=== PATIENT | female | born 1975 | race African-American/Black ===

== ENCOUNTER → 2019-01-27 | Outpatient (CLI) | payer OTHER ==
[~2019-01-27] MED LIST: AMLO10TA8 PO; ATOR10TA60 PO; CIPR500T PO; IOHEXOL 240 MG/ML 50ML VIAL. PO ONE; IOHEXOL 300 MG/ML 100ML VIAL. IV ONE; IOHEXOL 300 MG/ML 100ML VIAL. PO ONE; LISI-130 PO; METR-34 PO; MIRA50TA PO; TRIA1CAP3 PO
--- NOTE | 2019-01-27 11:34 | RAD ---
s EXAM: CT Abdomen and Pelvis with IV contrast CLINICAL HISTORY: COLOVESICAL FISTULA COMPARISON: none TECHNIQUE: Helical CT of the abdomen and pelvis was performed following the administration of intravenous contrast. Oral and rectal contrast was administered. Axial, coronal and sagittal reformatted images were generated. PQRS compliance statement - One or more of the following individualized dose reduction techniques were utilized for this study: 1. Automated exposure control 2. Adjustment of the mA and/or kV according to patient size 3. Use of iterative reconstruction technique FINDINGS: Lower chest: Aortic root calcifications are seen. Abdomen and Pelvis: A 7 mm hypodense right hepatic lobe lesion is seen. Focal low-attenuation along the falciform ligament likely focal fatty infiltration. Gallstones are seen within the gallbladder. Mild high density material layering dependently within the gallbladder likely sludge. No biliary ductal dilatation. Spleen is unremarkable. Adrenal glands are normal. Pancreas is unremarkable. Symmetric nephrograms. No focal renal lesion. No hydronephrosis. No hydroureter. The bladder is diffusely opacified with contrast. Within the sigmoid colon there is mild wall thickening with contrast partially extending into a collection between the uterus and bladder seen best on sagittal series 5, image 40, coronal series 4 image 32. The focus of direct extension into the bladder is not delineated but suspected given the bladder wall thickening, bladder contrast and gas within the bladder. No abdominal or pelvic lymphadenopathy. No abdominal or pelvic ascites. Bones: Osseous structures are grossly unremarkable. IMPRESSION: 1. There is a colovesicular fistula with contrast extending into an extraluminal collection between the sigmoid colon and bladder with subsequent contrast extension into the bladder. 2. Cholelithiasis and gallbladder sludge. Electronically signed by: Stanislaw Saunders MD (01/27/2019 11:31 AM) [facility]
== END | disposition home or self-care (01) ==
LOC: CT 07:59
PROVIDERS: ATTEND Surgery
DX: K63.2 Fistula of intestine (principal); K80.20 Calculus of gallbladder without cholecystitis without obstruction
CPT/HCPCS: 74177; Q9966; Q9967

== ENCOUNTER → 2019-01-29 | Outpatient (CLI) | payer OTHER ==
[~2019-01-29] MED LIST changes: -IOHEXOL 240 MG/ML 50ML VIAL. PO ONE; -IOHEXOL 300 MG/ML 100ML VIAL. IV ONE; -IOHEXOL 300 MG/ML 100ML VIAL. PO ONE
[2019-01-29 11:22] LABS: BASO # 0.1 x10^3/uL (0.0-0.2); BASO % 1 % (0-3); EOS # 0.3 x10^3/uL (0.0-0.7); EOS % 4 % (0-3); HEMATOCRIT 39.9 % (36.0-47.0); HEMOGLOBIN 12.5 g/dL (12.0-15.5); LYMPH # 2.3 x10^3/uL (1.0-4.8); LYMPH % 27 % (24-48); MEAN CORPUSCULAR HEMOGLOBIN 26 pg (25-35); MEAN CORPUSCULAR HGB CONC 31 g/dL (31-37); MEAN CORPUSCULAR VOLUME 82 fL (79-100); MONO # 0.8 x10^3/uL (0.0-1.1); MONO % 10 % (0-9); NEUT # 4.9 x10^3/uL (1.8-7.7); NEUT % 58 % (31-73); PLATELET COUNT 317 x10^3/uL (140-400); RED BLOOD COUNT 4.87 x10^6/uL (3.50-5.40); RED CELL DISTRIBUTION WIDTH 17.2 % (11.5-14.5); WHITE BLOOD COUNT 8.5 x10^3/uL (4.0-11.0)
[2019-01-29 11:41] LABS: ALBUMIN 3.3 g/dL (3.4-5.0); CALCIUM 9.1 mg/dL (8.5-10.1); CREATININE 1.2 mg/dL (0.6-1.0); GFR 58.8; POTASSIUM 4.2 mmol/L (3.5-5.1)
--- NOTE | 2019-01-29 11:55 | NUR ---
Lab results from 01/29/[address] Bangura's office
== END | disposition home or self-care (01) ==
LOC: SURGPAT 10:08
PROVIDERS: ATTEND Surgery
DX: Z01.818 Encounter for other preprocedural examination (principal); N32.1 Vesicointestinal fistula
CPT/HCPCS: 36415; 80048; 82040; 85025

== ENCOUNTER 2019-02-05 09:07 | Inpatient (IN) | payer OTHER ==
[~2019-02-05] VITALS: Ht 152.4 cm; Wt 113.2 kg
[2019-02-05] VITALS (8 sets, daily range): BP systolic 129–143; BP diastolic 64–78
[~2019-02-05 09:07] MED LIST changes: +IOHEXOL 300 MG/ML 50 ML VIAL. ONE; +IV RINGERS,LACTATED 1000ML 1,000 ML IV SCH; +LIDOCAINE 1% PF 2 ML VIAL. ID PRN; +LIDOCAINE 2% JELLY 6ML IN APPLICATOR. ONE; +ONDANSETRON PF 4 MG/2 ML VIAL. IV PRN; +PROCHLORPERAZINE 10 MG/2 ML VIAL. IV PRN; +fentaNYL PF VIAL 100 MCG/2 ML VIAL IV PRN
[2019-02-05] MEDS ORDERED: LIDOCAINE 2% PF 5 ML VIAL. ONE (09:14)
[2019-02-05] MEDS ORDERED: ROCURONIUM 100 MG/10 ML VIAL. ONE (09:14)
[2019-02-05] MEDS ORDERED: SUCCINYLCHOLINE 200 MG/10 ML VIAL. ONE (09:14)
[2019-02-05] MEDS ORDERED: PROPOFOL 20 ML IV ONE (09:14)
[2019-02-05] MEDS ORDERED: fentaNYL PF VIAL 100 MCG/2 ML VIAL ONE ×2 (09:15→11:55)
[2019-02-05] MEDS ORDERED: DESFLURANE 61 TO 120 MINUTES IH ONE (10:59)
[2019-02-05] MEDS ORDERED: DEXAMETHASONE SOD PHOS 20 MG/5 ML VIAL. ONE (10:59)
[2019-02-05] MEDS ORDERED: ONDANSETRON PF 4 MG/2 ML VIAL. ONE (11:43)
[2019-02-05] MEDS ORDERED: PHENYLEPHRINE in 0.9% NACL PF 1 MG/10 ML SYRINGE. IV ONE (12:06)
[2019-02-05] MEDS ORDERED: ROCURONIUM 50 MG/5 ML VIAL. ONE (13:29)
[2019-02-05] MEDS ORDERED: NEOSTIGMINE METHYLSULFATE 5 MG/5 ML SYRINGE. ONE (13:35)
[2019-02-05] MEDS ORDERED: GLYCOPYRROLATE 1 MG/5 ML VIAL. ONE (13:36)
[2019-02-05] MEDS ORDERED: DESFLURANE > 120 MINUTES IH ONE (13:56)
[2019-02-05] MEDS: IV NORMAL SALINE 1000ML BAG 1,000 ML IV SCH (14:22)
[2019-02-05] MEDS ORDERED: NALOXONE 0.4 MG/ML VIAL. IV PRN (14:30)
[2019-02-05] MEDS ORDERED: 0.9 % SODIUM CHLORIDE 10 ML DISP.SYRIN. IV PRN (14:30)
[2019-02-05] MEDS ORDERED: ONDANSETRON PF 4 MG/2 ML VIAL. IV PRN (14:30)
[2019-02-05] MEDS: MORPHINE SULFATE 2 MG/ML VIAL. IV PRN ×2 (14:35→14:45)
[2019-02-05] MEDS: fentaNYL PF VIAL 100 MCG/2 ML VIAL IV PRN ×4 (14:35→15:06)
[2019-02-05] MEDS: HYDROmorphone 2 MG/ML VIAL IV PRN ×2 (14:55→15:07)
--- NOTE | 2019-02-05 14:55 | PDOC ---
BRIEF OPERATIVE NOTE Date: Feb 05, 2019 Pre-Op Diagnosis colovesical fistula Post-Op Diagnosis same Procedure Performed rigid proctocopy sigmoid resection with primary anastomosis Surgeon Willem Bioinformatics Research Technician Marguerite JAVED Anesthesia Type: General Blood Loss 100cc IV Fluid 1500cc Urine Output 100cc Specimens Obtained sigmoid colon Findings colovesical fistula, normal sigmoid proximal and distal to the process Complications none Operative Note Wk # [id number] GENE OSCAR MD Feb 05, 2019 14:55
[2019-02-05] MEDS: TRIAMTERENE/HCTZ 37.5/25MG TABLET. PO SCH (15:00)
[2019-02-05] MEDS: amLODIPine BESYLATE 10 MG TABLET PO SCH (15:10)
[2019-02-05] MEDS ORDERED: FLU VAX QS 2019-20 (36MOS+)/PF 0.5 ML SYRINGE. VAX IM ONE (15:45)
[2019-02-05] MEDS: HYDROmorphone 12mg/30ml PCA 30 ML IV PRN (16:15)
--- NOTE | 2019-02-05 16:46 | RAD ---
Examination: KUB History: Postop KUB. Sigmoid resection. Comparison/Correlation: 01/27/2019 CT abdomen and pelvis with contrast Findings: Frontal view of the abdomen was obtained in the operating room. Right-sided pelvic drain terminating overlying the left lower iliac fossa regions present. Left-sided drain terminating overlying the left L5 transverse process noted. Bowel gas pattern is unremarkable. No suspicious retained foreign bodies delineated. Impression: No obstruction. Electronically signed by: Bob Morrow MD (02/05/2019 4:44 PM) [facility]
[2019-02-05] MEDS: POTASSIUM CL 20MEQ-0.45% NACL 1,000 ML IV SCH (18:54)
--- NOTE | 2019-02-05 19:34 | OP ---
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 PROCEDURE: 1. Rigid proctoscopy. 2. Sigmoid resection with primary anastomosis. SURGEON: Earnest Oscar MD REAL ESTATE PROCESSOR: TEGAN Vaughan ANESTHESIA: General endotracheal. ESTIMATED BLOOD LOSS: 100 mL. INTRAVENOUS FLUIDS: 1500 mL. URINE OUTPUT: 100 mL. INDICATIONS FOR PROCEDURE: The patient is a 44-year-old with abdominal pain, who was investigated by her urologist and found to have a colovesical fistula. She was treated with antibiotic therapy as an outpatient, right now for resection. OPERATIVE FINDINGS: The sigmoid colon had an area of induration and dense adherence to the dome of the bladder consistent with a fistula. The colon above and below the process was unremarkable. Left ovary was surgically absent, uterus and right ovary were intact with cystic change in the right ovary. Small bowel was run without abnormality. DESCRIPTION OF PROCEDURE: The patient brought to the operating suite, given a general endotracheal anesthetic, placed in lithotomy and underwent cystoscopy with ureteral stent placement by Dr. Alvarado who will dictate. Digital rectal exam was carried out and the rigid scope placed in anal canal and under direct vision, advanced to approximately 20 cm from the anal verge. No abnormalities seen at that point. The scope removed and the abdomen and perineum prepped and draped in usual sterile fashion. An old low midline scar was opened and extended slightly above the umbilicus and the abdomen carefully entered. Omental adhesions taken down from the abdominal wall to allow exploration. The Omni self-retaining retractor was used for exposure with the table in Trendelenburg, we set about mobilizing the distal descending and sigmoid colon off the lateral pelvic wall being aware of the ureter with the stent in place. Once we had adequately mobilized the bowel, it was freed off the bladder with careful blunt and sharp dissection. An area of normal appearing bowel proximal to the process was skeletonized, divided with a SHANTA stapler. Mesocolon sterilely clamped, divided and ligated to a point beyond the inflamed area and it was divided with a contour stapler and the specimen passed off. Intraoperative inspection by pathology revealed the diverticulum as the source of the fistula. An end-to-end anastomosis was then created without tension, placing a posterior row of interrupted 3-0 Vicryl sutures. Proximal bowel occluded with an atraumatic clamp. Staple lines excised. Mucosal anastomosis created with a running locked 3-0 chromic first posteriorly, then anteriorly. Clamp removed. Anastomosis completed with 3-0 Vicryl suture. With the anastomosis submerged in saline, the rigid scope was reinserted and the bowel insufflated. It distended nicely and did not show evidence of air leak. Bowel decompressed. Scope removed. Gloves were changed. When a correct sponge count was obtained, the abdomen was closed in a single layer using looped 0 PDS in running fashion, tied in the middle. Prior to closure, a 19-Czech round Jamaal drain was brought through a right lower quadrant stab wound and left in the pelvis for postoperative drainage attached to the skin with a 2-0 silk. A second FERNIE drain was brought through a left-sided stab wound and left in the subcutaneous space for postoperative drainage again, secured with a silk stitch. When a second sponge count was correct, skin was closed with a subcuticular 4-0 Monocryl. Sterile dressing applied. The patient taken out of lithotomy and a postop foreign body film was made, which was negative for unexplained foreign body. The patient awakened from her anesthetic and taken to the recovery room in satisfactory condition. EARNEST OSCAR MD DR: JORGE LUIS/sangeeta JOB#: [id number] / [id number]
[2019-02-06 03:00] VITALS: BP 144/74
[2019-02-06] MEDS: POTASSIUM CL 20MEQ-0.45% NACL 1,000 ML IV SCH ×3 (05:04→15:55)
[2019-02-06] MEDS: ENOXAPARIN 40 MG/0.4 ML SYRINGE. SQ SCH (06:02)
[2019-02-06 07:00] VITALS: BP 113/73
[2019-02-06] MEDS: TRIAMTERENE/HCTZ 37.5/25MG TABLET. PO SCH (09:00)
[2019-02-06] MEDS: amLODIPine BESYLATE 10 MG TABLET PO SCH (09:00)
--- NOTE | 2019-02-06 10:30 | NUR ---
Non admin IV fluids. Current bag is still running.
[2019-02-06 11:00] VITALS: BP 152/76
--- NOTE | 2019-02-06 12:27 | PDOC ---
SURGICAL PROGRESS NOTE Subjective up to chair mom in room adequate pain control Vital Signs Vital Signs Date Time Temp Pulse Resp B/P (MAP) Pulse Ox O2 Delivery O2 Flow Rate FiO2 02/06/19 11:00 97.7 82 16 152/76 (101) 94 Room Air 97.7 02/06/19 03:00 5.0 I&O Intake and Output 02/06/19 07:00 Intake Total 0 ml Output Total 1450 ml Balance -1450 ml Intake Oral 0 ml Output Urine Total 1250 ml Drainage Total 100 ml Estimated Blood Loss 100 ml PATIENT HAS A HAWKINS: Yes (colovesical fistula) Abdomen: Soft, Other (FERNIE with serosaguineous output) Labs Laboratory Tests Test 02/05/19 09:29 Bedside Urine HCG, Qualitative Hcg negative (Negative) Assessment/Plan POD 1 start clears for dinner GENE OSCAR MD Feb 06, 2019 12:27
--- NOTE | 2019-02-06 13:32 | NUR ---
SS following for discharge planning. SS reviewed pt chart. Pt is from home and is currently on room air. No discharge needs noted at this time. SS will continue to follow for discharge planning.
[2019-02-06] MEDS: IV NORMAL SALINE 1000ML BAG 1,000 ML IV SCH (14:22)
[2019-02-06 15:00] VITALS: BP 141/76
[2019-02-06 19:00] VITALS: BP 147/73
[2019-02-06] MEDS: diphenhydrAMINE HCL 25 MG CAPSULE PO PRN (19:37)
[2019-02-06] MEDS: OXYBUTYNIN CHLORIDE 5 MG TABLET PO SCH (20:29)
[2019-02-06 23:11] VITALS: BP 143/68
[2019-02-07] MEDS: POTASSIUM CL 20MEQ-0.45% NACL 1,000 ML IV SCH ×2 (01:02→14:38)
[2019-02-07 03:00] VITALS: BP 132/69
[2019-02-07] MEDS: ENOXAPARIN 40 MG/0.4 ML SYRINGE. SQ SCH (05:31)
[2019-02-07 07:00] VITALS: BP 148/77
[2019-02-07] MEDS: TRIAMTERENE/HCTZ 37.5/25MG TABLET. PO SCH (09:33)
[2019-02-07] MEDS: amLODIPine BESYLATE 10 MG TABLET PO SCH (09:33)
[2019-02-07] MEDS: OXYBUTYNIN CHLORIDE 5 MG TABLET PO SCH ×3 (09:33→20:51)
[2019-02-07 11:00] VITALS: BP 156/89
[2019-02-07] MEDS: IV NORMAL SALINE 1000ML BAG 1,000 ML IV SCH (14:22)
--- NOTE | 2019-02-07 14:44 | PDOC ---
SURGICAL PROGRESS NOTE Subjective up to bedside chair pain controlled feels like she could pass some gas Vital Signs Vital Signs Date Time Temp Pulse Resp B/P (MAP) Pulse Ox O2 Delivery O2 Flow Rate FiO2 02/07/19 11:00 98.7 94 16 156/89 (111) 99 98.7 02/07/19 07:42 Room Air 02/07/19 03:00 5.0 I&O Intake and Output 02/07/19 07:00 Intake Total 450 ml Output Total 1990 ml Balance -1540 ml Intake Oral 450 ml Output Urine Total 1880 ml Drainage Total 110 ml PATIENT HAS A HAWKINS: Yes (colovesical fistula) General: Alert, Oriented X3, No acute distress Abdomen: Soft, Other (FERNIE drains with serosanguineous output) Assessment/Plan POD 2 sigmoid resection increase activity ambulate advance to clear liquids Dr Alfonso and Danae Frey to follow over the weekend GENE OSCAR MD Feb 07, 2019 14:44
[2019-02-07 15:00] VITALS: BP 151/86
--- NOTE | 2019-02-07 16:06 | PATHOLOGY ---
[facility] Accession Number: [id number] . 01 Material submitted: . colon - SIGMOID COLON. Modifiers: sigmoid . 01 Clinical history: . History of colovesical fistula . 02 Frozen section diagnosis: . INTRAOPERATIVE CONSULTATION DIAGNOSIS Sigmoid colon: - Diverticulosis with diverticulitis and fistula - no gross evidence of malignancy. . The results are displayed to Dr. Bangura in the operating room. The specimen is then fixed in formalin prior to additional sectioning. . (JPM:amira/hortencia; 02/05/2019) . GROSS DESCRIPTION The specimen is received fresh for intraoperative consultation and is designated "sigmoid colon fresh". This consists of a short segment of colon with attached yellow-red mesocolic and pericolic soft tissue. The segment is stapled closed at both ends. There is a suture attached adjacent to the distal stapled margin. The segment measures up to 10.5 cm in length and 7.0 cm in width. Most of the serosal surface is covered by yellow-red fatty tissue. The visible serosal surface is pinkish-brown and erythematous. Within the mid portion of the segment, there is an ovoid hemorrhagic area with an attached suture of the serosal surface, measuring approximately 1.3 cm in length. The segment is opened longitudinally. The colonic mucosa is pinkish-crandall to pinkish-matos and transversely folded. There are several small reddish-brown slightly raised polyps measuring up to 0.4 cm in greatest dimension. There are a few diverticuli present. One of these diverticuli is probe patent with the area of hemorrhage of the serosal surface consistent with a fistula. There is thickening of the bowel wall in the mid portion of the segment. (JPM:amira/hortencia; 02/05/2019) . Intraoperative consultation performed at [facility], [address] [place] [id number]. ALAYNA/MBR . 02 Diagnosis: Segment of colon and attached mesocolic/pericolic soft tissue, sigmoid colon segmental resection: - Diverticulosis. - Chronic and focal acute diverticulitis with fistula (clinical colovesical fistula). - Hyperplastic polyps/prominent mucosal folds with recent mucosal hemorrhage. (JPM:[facility] 02/07/2019) QTP 02/07/2019 1456 Local . 02 Comment: There is no evidence of malignancy. (JPM:[facility] 02/07/2019) . 02 Electronically signed: . Jacob Jones MD, Pathologist NPI- [id number] . 01 Gross description: . PLEASE SEE FROZEN SECTION GROSS DESCRIPTION. . The area of hemorrhage consistent with the fistula is inked black. Further sectioning the specimen reveals a diverticulum measure up to 0.5 cm. Assembly Line Brazer sections are submitted as follows: . A1: Distal margin A2: Proximal margin A3-A4: Fistula A5: Possible polyps A6: Diverticulum (SDY; 02/06/2019) SYU/MBR 02/06/2019 1123 Local . 02 Pathologist provided ICD-10: K57.32, K57.30, K63.5 . 02 CPT . 869608, [id number] Specimen Comment: A courtesy copy of this report has been sent to Specimen Comment: [phone], . Specimen Comment: Report sent to / DR FIELDS Performed at: 01 [facility] [address], [place], [place] [id number] MD Christian Allen MD Phone: [phone] Performed at: 02 [facility] [address] [place], [place] [id number] MD Jacob Jones MD Phone: [phone]
[2019-02-07] MEDS: diphenhydrAMINE HCL 25 MG CAPSULE PO PRN (17:20)
[2019-02-07 19:00] VITALS: BP 143/81
[2019-02-07 23:12] VITALS: BP 145/80
[2019-02-08] VITALS (7 sets, daily range): BP systolic 137–151; BP diastolic 71–113
[2019-02-08] MEDS: diphenhydrAMINE HCL 25 MG CAPSULE PO PRN (03:37)
[2019-02-08] MEDS: POTASSIUM CL 20MEQ-0.45% NACL 1,000 ML IV SCH ×3 (03:39→20:40)
[2019-02-08] MEDS: ENOXAPARIN 40 MG/0.4 ML SYRINGE. SQ SCH (06:15)
[2019-02-08] MEDS: TRIAMTERENE/HCTZ 37.5/25MG TABLET. PO SCH (09:31)
[2019-02-08] MEDS: OXYBUTYNIN CHLORIDE 5 MG TABLET PO SCH ×3 (09:31→20:40)
[2019-02-08] MEDS: amLODIPine BESYLATE 10 MG TABLET PO SCH (09:31)
--- NOTE | 2019-02-08 12:32 | PDOC ---
SURGICAL PROGRESS NOTE Subjective pain issues last night, improved now no flatus taking liquids, no bloating Vital Signs Vital Signs Date Time Temp Pulse Resp B/P (MAP) Pulse Ox O2 Delivery O2 Flow Rate FiO2 02/08/19 12:18 99.2 95 18 137/85 (102) 96 Room Air 99.2 I&O Intake and Output 02/08/19 07:00 Intake Total 1080 ml Output Total 2740 ml Balance -1660 ml Intake Oral 1080 ml Output Urine Total 2625 ml Drainage Total 115 ml # Voids 3 PATIENT HAS A HAWKINS: Yes General: Alert, Oriented X3, Cooperative, No acute distress Abdomen: Soft, Other (dressing dry, drains serosang) Assessment/Plan s/p resection continue Fulls, await bowel function pleat patternmaker for today, consider DC in SOFY KAPLAN DEVOPS ARCHITECT Feb 08, 2019 12:32
[2019-02-08] MEDS: IV NORMAL SALINE 1000ML BAG 1,000 ML IV SCH (14:22)
[2019-02-08] MEDS: HYDROmorphone 12mg/30ml PCA 30 ML IV PRN (19:16)
[2019-02-09 02:58] VITALS: BP 131/75
[2019-02-09] MEDS: ENOXAPARIN 40 MG/0.4 ML SYRINGE. SQ SCH (05:54)
[2019-02-09 06:37] VITALS: BP 127/81
[2019-02-09] MEDS: POTASSIUM CL 20MEQ-0.45% NACL 1,000 ML IV SCH ×2 (07:49→17:40)
[2019-02-09] MEDS: OXYBUTYNIN CHLORIDE 5 MG TABLET PO SCH ×3 (07:50→20:13)
[2019-02-09] MEDS: TRIAMTERENE/HCTZ 37.5/25MG TABLET. PO SCH (07:50)
[2019-02-09] MEDS: amLODIPine BESYLATE 10 MG TABLET PO SCH (07:50)
--- NOTE | 2019-02-09 09:31 | PDOC ---
SURGICAL PROGRESS NOTE Subjective Pt with c/o pressure/bloating, sylvia PO, no n/v, passing some flatus Vital Signs Vital Signs Date Time Temp Pulse Resp B/P (MAP) Pulse Ox O2 Delivery O2 Flow Rate FiO2 02/09/19 07:50 85 127/81 02/09/19 06:37 97.7 12 99 97.7 02/09/19 02:58 Room Air I&O Intake and Output 02/09/19 06:59 Output Total 3025 ml Balance -3025 ml Output Urine Total 2800 ml Drainage Total 225 ml PATIENT HAS A CLAY: Yes (colovesicle fistula repair) General: Alert, Oriented X3, Cooperative, No acute distress Abdomen: Soft, No tenderness, Other (dressing intact, FERNIE serosang) Problem List s/p sigmoid resection cont soft cont clay VINCE PARRY MD Feb 09, 2019 09:31
[2019-02-09 11:00] VITALS: BP 137/95
[2019-02-09] MEDS: IV NORMAL SALINE 1000ML BAG 1,000 ML IV SCH (14:22)
[2019-02-09 15:00] VITALS: BP 151/88
[2019-02-09 20:39] VITALS: BP 134/89
[2019-02-09 23:00] VITALS: BP 137/85
[2019-02-10] MEDS: POTASSIUM CL 20MEQ-0.45% NACL 1,000 ML IV SCH (03:26)
[2019-02-10 03:30] VITALS: BP 144/68
[2019-02-10] MEDS: ENOXAPARIN 40 MG/0.4 ML SYRINGE. SQ SCH (04:53)
[2019-02-10 07:00] VITALS: BP 137/70
[2019-02-10] MEDS: TRIAMTERENE/HCTZ 37.5/25MG TABLET. PO SCH (09:05)
[2019-02-10] MEDS: OXYBUTYNIN CHLORIDE 5 MG TABLET PO SCH ×3 (09:05→21:15)
[2019-02-10] MEDS: amLODIPine BESYLATE 10 MG TABLET PO SCH (09:06)
--- NOTE | 2019-02-10 09:42 | PDOC ---
SURGICAL PROGRESS NOTE Subjective up to chair would like more to eat (on full liquids now) passing gas Vital Signs Vital Signs Date Time Temp Pulse Resp B/P (MAP) Pulse Ox O2 Delivery O2 Flow Rate FiO2 02/10/19 09:06 84 137/70 02/10/19 07:00 97.6 18 99 Room Air 97.6 I&O Intake and Output 02/10/19 07:00 Intake Total 300 ml Output Total 2989 ml Balance -2689 ml Intake Oral 300 ml Output Urine Total 2849 ml Drainage Total 140 ml PATIENT HAS A HAWKINS: Yes (post op closure colovesical fistula) General: Alert, Oriented X3, No acute distress Abdomen: Soft, Other (JPs with serous output, incision c/d) Assessment/Plan POD 5 sigmoid resection slow IV advance diet increase activity d/c DIRECT SUPPORT STAFF MEMBER switch to po pain meds GENE OSCAR MD Feb 10, 2019 09:42
[2019-02-10 11:00] VITALS: BP 141/77
[2019-02-10] MEDS: IV NORMAL SALINE 1000ML BAG 1,000 ML IV SCH (14:22)
[2019-02-10 15:00] VITALS: BP 116/61
[2019-02-10] MEDS: oxyCODONE/APAP 5/325 1 TAB TABLET PO PRN ×2 (15:27→21:52)
[2019-02-10 19:05] VITALS: BP 133/72
[2019-02-10 23:05] VITALS: BP 138/61
[2019-02-11 03:05] VITALS: BP 130/73
[2019-02-11] MEDS: oxyCODONE/APAP 5/325 1 TAB TABLET PO PRN ×3 (03:08→21:24)
[2019-02-11 04:47] LABS: HEMATOCRIT 36.4 % (36.0-47.0); HEMOGLOBIN 11.9 g/dL (12.0-15.5); RED BLOOD COUNT 4.5 x10^6/uL (3.50-5.40); RED CELL DISTRIBUTION WIDTH 16.8 % (11.5-14.5); WHITE BLOOD COUNT 9.5 x10^3/uL (4.0-11.0)
[2019-02-11 05:23] LABS: CREATININE 1.1 mg/dL (0.6-1.0); GFR 64.7
[2019-02-11] MEDS: ENOXAPARIN 40 MG/0.4 ML SYRINGE. SQ SCH (06:17)
[2019-02-11 07:00] VITALS: BP 144/81
[2019-02-11] MEDS: OXYBUTYNIN CHLORIDE 5 MG TABLET PO SCH ×3 (08:52→21:20)
[2019-02-11] MEDS: IV NORMAL SALINE 1000ML BAG 1,000 ML IV SCH (08:52)
[2019-02-11] MEDS: amLODIPine BESYLATE 10 MG TABLET PO SCH (08:52)
[2019-02-11] MEDS: TRIAMTERENE/HCTZ 37.5/25MG TABLET. PO SCH (08:52)
[2019-02-11] MEDS: POTASSIUM CL 20MEQ-0.45% NACL 1,000 ML IV SCH ×2 (08:53→21:23)
--- NOTE | 2019-02-11 09:48 | PDOC ---
SOFY ORR WINDOWS APPLICATION DEVELOPER 02/11/19 0948: SURGICAL PROGRESS NOTE Subjective issues with pain overnight, improved now some itching with meds no nausea tired this AM Vital Signs Vital Signs Date Time Temp Pulse Resp B/P (MAP) Pulse Ox O2 Delivery O2 Flow Rate FiO2 02/11/19 08:52 104 144/81 02/11/19 07:00 98.1 16 99 Room Air 98.1 I&O Intake and Output 02/11/19 07:00 Intake Total 1200 ml Output Total 2770 ml Balance -1570 ml Intake Oral 1200 ml Output Urine Total 2700 ml Drainage Total 70 ml PATIENT HAS A CLAY: Yes General: Alert, Oriented X3, Cooperative, No acute distress Abdomen: Soft, Other (drains serosang, dressing dry) Labs Laboratory Tests Test 02/11/19 03:35 White Blood Count 9.5 x10^3/uL (4.0-11.0) Red Blood Count 4.50 x10^6/uL (3.50-5.40) Hemoglobin 11.9 g/dL (12.0-15.5) Hematocrit 36.4 % (36.0-47.0) Mean Corpuscular Volume 81 fL (79-100) Mean Corpuscular Hemoglobin 26 pg (25-35) Mean Corpuscular Hemoglobin Concent 33 g/dL (31-37) Red Cell Distribution Width 16.8 % (11.5-14.5) Platelet Count 398 x10^3/uL (140-400) Creatinine 1.1 mg/dL (0.6-1.0) Estimated GFR (Cockcroft-Gault) 64.7 Laboratory Tests Test 02/11/19 03:35 White Blood Count 9.5 x10^3/uL (4.0-11.0) Red Blood Count 4.50 x10^6/uL (3.50-5.40) Hemoglobin 11.9 g/dL (12.0-15.5) Hematocrit 36.4 % (36.0-47.0) Mean Corpuscular Volume 81 fL (79-100) Mean Corpuscular Hemoglobin 26 pg (25-35) Mean Corpuscular Hemoglobin Concent 33 g/dL (31-37) Red Cell Distribution Width 16.8 % (11.5-14.5) Platelet Count 398 x10^3/uL (140-400) Creatinine 1.1 mg/dL (0.6-1.0) Estimated GFR (Cockcroft-Gault) 64.7 Assessment/Plan ambulate continue clay diet as tolerated GENE OSCAR MD 02/11/19 1328: SURGICAL PROGRESS NOTE Assessment/Plan pt seen as above discharge planning SOFY ORR APRN Feb 11, 2019 09:48 GENE OSCAR MD Feb 11, 2019 13:28
[2019-02-11 11:00] VITALS: BP 138/73
--- NOTE | 2019-02-11 11:37 | NUR ---
SS following up with discharge planning. PT/OT recommended home with assistance. Nurse navigator notified and will meet with pt to discuss home healthcare. SS will continue to follow for discharge planning.
--- NOTE | 2019-02-11 13:39 | PDOC4 ---
OPERATIVE NOTE Date: Date: Feb 05, 2019 Pre-Op Diagnosis: colovesical fistula Post-Op Diagnosis: same Procedure Performed: cysto, bl stents Surgeon: Anesthesia Type: ga Blood Loss: 0ml Specimans Obtained: none Findings: post superior fistulous tract Complications: none Operative Note: prepped and draped in sterile fashion. Time out, SCD, iv abx were administered. 21fr scope was used to get into bladder. Left Uo was cannulated with pollack, scope was removed with ureter cath left in place. Same thing was done on the right both cath were threaded into tubing of 16fr cath. Cath was placed into bladder. 10ml in balloon. care handed to . VASHTI BLANCO MD Feb 11, 2019 13:39
[2019-02-11 15:00] VITALS: BP 149/72
[2019-02-11 19:15] VITALS: BP 157/86
[2019-02-11 23:05] VITALS: BP 134/75
[2019-02-12 03:23] VITALS: BP 132/71
[2019-02-12] MEDS: ENOXAPARIN 40 MG/0.4 ML SYRINGE. SQ SCH (06:27)
[2019-02-12 07:00] VITALS: BP 141/86
[2019-02-12] MEDS: OXYBUTYNIN CHLORIDE 5 MG TABLET PO SCH ×2 (08:44→14:16)
[2019-02-12] MEDS: amLODIPine BESYLATE 10 MG TABLET PO SCH (08:44)
[2019-02-12] MEDS: TRIAMTERENE/HCTZ 37.5/25MG TABLET. PO SCH (08:44)
--- NOTE | 2019-02-12 10:45 | DISCH ---
DISCHARGE INSTRUCTIONS Condition on Discharge Condition on Discharge: Stable Activity After Discharge Activity Instructions for Disc: Activity as tolerated, Avoid exertion Lifting Instructions after Dis: No heavy lifting Driving Instructions after Dis: Do not drive (2-3 days) Diet after Discharge Diet after Discharge: Regular Wound Incision Care Wound/Incision Care: Ice to area for comfort Other wound/incision instructi: may shower, change drain dressing to keep dry Follow-Up Follow up with: Willem 02/17 GENE OSCAR MD Feb 12, 2019 10:45
[2019-02-12 11:00] VITALS: BP 122/73
[2019-02-12] MEDS ORDERED: DIATRIZOATE MEGLUMINE 18% 300 ML SOLUTION. BLADIN ONE (11:15)
[2019-02-12] MEDS: IV NORMAL SALINE 1000ML BAG 1,000 ML IV SCH (14:15)
--- NOTE | 2019-02-12 14:55 | NUR ---
Leg bag applied. Pt educated leg bag care and how to empty bag.
--- NOTE | 2019-02-12 15:24 | RAD ---
Examination: CYSTOGRAM History: Postoperative repair of colovesical fistula Comparison/Correlation: 01/27/2019 CT abdomen and pelvis with oral and IV contrast Findings: [employer] view demonstrates tubing overlying the right pelvic region. 300 cc of contrast was administered via King catheter. 1.2 minutes of fluoroscopy were utilized. A total of 19 images were acquired. Distention of the urinary bladder is adequate. There is concavity of the left urinary bladder dome. There is an irregularcurvilinear collection of contrast noted superior to the left urinary bladder dome. There is no significant change in location of this contrast collection during the course of the exam. On the postevacuation image, it is slightly less evident but still present. No other collections of contrast identified. No intraluminal suspicious filling defects involving the urinary bladder. Impression: Collection of contrast at the left superior bladder dome level compatible with extravasation. Deformity of the left urinary bladder dome contour is noted corresponding with surgical history. Electronically signed by: Bob Morrow MD (02/12/2019 3:22 PM) [facility]
--- NOTE | 2019-02-12 16:21 | NUR ---
Pt. discharged to home with Rx, leg bag, and RLQ FERNIE drain, verbalized understanding of discharge instructions and understanding of FERNIE drain care and clay care for home.
[2019-02-12] MEDS ORDERED: ENOXAPARIN 40 MG/0.4 ML SYRINGE. SQ SCH (18:00)
--- NOTE | 2019-03-05 14:08 | PDOC3 ---
Discharge Summary Visit Information Date of Admission: Feb 05, 2019 Date of Discharge: Feb 12, 2019 Admitting Diagnosis Comment: colovesical fistula Final Diagnosis same Brief Hospital Course Allergies Allergies Coded Allergies Type Severity Reaction Last Updated Verified No Known Drug Allergies 01/27/19 No Brief Hospital Course Ms. Galvez is a 44 old obese female who presented with colovesical fistula. She underwent resection. Went home with King Assessment Assessment Stable Discharge Information Condition at Discharge: Stable Follow Up: As Needed Disposition/Orders: D/C to Home Scheduled Amlodipine Besylate (Amlodipine Besylate) 10 Mg Tablet, 10 MG PO DAILY for HTN, (Reported) Entered as Reported by: SOURAV THOMPSON on 01/29/191041 Last Taken: Unknown Dose on 02/05/19 0600 Last Action: Continued on 02/05/191458 by GENE OSCAR Atorvastatin Calcium (Atorvastatin Calcium) 10 Mg Tablet, 1 TAB PO DAILY for CHOLESTEROL, #30 Ref 5 (Reported) Entered as Reported by: SOURAV THOMPSON on 01/29/191041 Last Taken: Unknown Dose on 02/04/19 Last Action: HELD on 02/05/191458 by GENE OSCAR Lisinopril (Lisinopril) 40 Mg Tablet, 1 TAB PO DAILY for HTN, #30 Ref 5 (Reported) Entered as Reported by: SOURAV THOMPSON on 01/29/191041 Last Taken: Unknown Dose on 02/04/19 Last Action: HELD on 02/05/191458 by GENE OSCAR Mirabegron (Myrbetriq) 50 Mg Tab.er.24h, 50 MG PO DAILY for BLADDER, (Reported) Entered as Reported by: SOURAV THOMPSON on 01/29/191041 Last Taken: Unknown Dose on 02/04/19 Last Action: Converted on 02/05/191458 by GENE OSCAR Triamterene/Hydrochlorothiazid (Triamterene-Hctz 37.5-25 Mg Cp) 1 Each Capsule, 1 CAP PO DAILY for FLIUD, #30 Ref 5 (Reported) Entered as Reported by: SOURAV THOMPSON on 01/29/191041 Last Taken: Unknown Dose on 02/04/19 Last Action: Converted on 02/05/191458 by GENE DELGADO MD Mar 05, 2019 14:07
== END 2019-02-12 16:20 | disposition home or self-care (01) | DRG 330 ==
LOC: OPSVCIP 09:07 → 4 NORTH 15:32
PROVIDERS: ADMIT Surgery; ATTEND Surgery
PROC: 0DJD8ZZ Inspection of Lower Intestinal Tract, Via Natural or Artificial Opening Endoscopic (ICD-10-PCS; principal; 2019-02-05 10:30)
PROC: 0DBN0ZZ Excision of Sigmoid Colon, Open Approach (ICD-10-PCS; 2019-02-05 10:30)
PROC: 0T788ZZ Dilation of Bilateral Ureters, Via Natural or Artificial Opening Endoscopic (ICD-10-PCS; 2019-02-11)
DX: K57.92 Diverticulitis of intestine, part unspecified, without perforation or abscess without bleeding (principal); N32.1 Vesicointestinal fistula; Z68.42 Body mass index [BMI] 45.0-49.9, adult; K66.0 Peritoneal adhesions (postprocedural) (postinfection); E66.01 Morbid (severe) obesity due to excess calories
CPT/HCPCS: 36415; 74018; 74430; 81025; 82565; 85027; 86850; 86900; 86901; 88307; 90471; 90686; A7015; C1769; J0330; J0696; J1100; J1170; J1650; J2001; J2270; J2370; J2405; J2704; J2710; J3010; J3490; J7120; Q0163; Q9958; Q9967; 97112; 97116; 97530; 97535; G0378

== ENCOUNTER → 2019-02-20 | Outpatient (CLI) | payer OTHER ==
[2019-02-12 11:00] VITALS: BP 122/73
[~2019-02-20] MED LIST changes: +DIATRIZOATE MEGLUMINE 18% 300 ML SOLUTION. BLADIN ONE; -IOHEXOL 300 MG/ML 50 ML VIAL. ONE; -IV RINGERS,LACTATED 1000ML 1,000 ML IV SCH; -LIDOCAINE 1% PF 2 ML VIAL. ID PRN; -LIDOCAINE 2% JELLY 6ML IN APPLICATOR. ONE; -ONDANSETRON PF 4 MG/2 ML VIAL. IV PRN; -PROCHLORPERAZINE 10 MG/2 ML VIAL. IV PRN; -fentaNYL PF VIAL 100 MCG/2 ML VIAL IV PRN
--- NOTE | 2019-02-20 16:42 | RAD ---
CYSTOGRAM: 02/20/2019 8:00 AM CLINICAL HISTORY: POST COLOVESICAL FISTULA REPAIR, CHECK FOR EXTRAVASATION COMPARISON: None. TECHNIQUE: A preliminary radiograph of the abdomen was obtained. After catheterizing the urinary bladder using sterile technique, a total of 300 ml Cysto-Conray II were instilled by gravity under fluoroscopic guidance and fluoroscopic evaluation of the urinary tract was performed during bladder filling and voiding. The examination was recorded on digital spot images. Fluoroscopy time was 0.4 minutes. FINDINGS: Early filling of the urinary bladder demonstrates no filling defect. Mild deformity of the bladder is stable, likely postsurgical. Trace extraluminal contrast is seen at the bladder dome, decreased in size compared to prior cystogram 02/12/2019. No ureterocele or vesicocele. There is a minimal post-void residual volume. IMPRESSION: 1. Trace extraluminal contrast is seen at the bladder dome, decreased in size compared to prior cystogram 02/12/2019. Electronically signed by: Stanislaw Saunders MD (02/20/2019 4:39 PM) [facility]
== END | disposition home or self-care (01) ==
LOC: RAD 07:14
PROVIDERS: ATTEND Urology
DX: S37.20XD Unspecified injury of bladder, subsequent encounter (principal); N32.89 Other specified disorders of bladder; X58.XXXD Exposure to other specified factors, subsequent encounter
CPT/HCPCS: 74430; Q9958